=== PATIENT | female | born 1935 | race Caucasian/White ===

== ENCOUNTER 2022-06-19 11:33 | Inpatient (IN) ==
[2022-06-19] MEDS ORDERED: FUROSEMIDE 100 MG/10 ML VIAL IV ONE (13:04)
--- NOTE | 2022-06-19 13:07 | Emergency Department Note ---
HPI General Chief complaint: Shortness of Breath/Dyspnea Stated complaint: swollen legs Time Seen by Provider: 06/19/22 11:50 Source: patient Mode of arrival: wheelchair History of Present Illness HPI Narrative: Narrative: Patient is an 87-year-old female with a past medical history significant for atrial fibrillation and heart failure presents to the emergency department due to increasing swelling to her lower extremities and shortness of breath. Patient states that over the last week she has become increasingly short of breath. She endorses feeling more short of breath when laying flat on her bed. She also endorses waking up and feeling short of breath. She states that she becomes more significantly short of breath when walking or otherwise active. Patient's daughter states that she becomes short of breath while talking. Patient's daughter is a nurse, and states that she is concerned that she has worsening heart failure as a cause of her shortness of breath. Patient does endorse some palpitations intermittently as well. The patient's daughter states that she is concerned because her legs have swollen so much that she has begun to have weeping from her legs. She denies any other concerns at this time. Related Data Home Medications Medication Instructions Recorded Confirmed Actos 1 tab PO QPM 06/19/22 06/19/22 Daily Multi-Vitamin 1 tab PO QAM 06/19/22 06/19/22 Eliquis 1 tab PO Q12 06/19/22 06/19/22 Ocuvite Lutein 1 tab PO QAM 06/19/22 06/19/22 Tylenol 1 tab PO Q4-6HP PRN Pain 06/19/22 06/19/22 Zegerid 1 cap PO QHS PRN Heartburn 06/19/22 06/19/22 atorvastatin 1 tab PO QPM 06/19/22 06/19/22 bisoprolol fumarate 1 tab PO BID 06/19/22 06/19/22 duloxetine 1 cap PO Q12 06/19/22 06/19/22 escitalopram oxalate 1 tab PO QAM 06/19/22 06/19/22 furosemide 1 tab PO QAM 06/19/22 06/19/22 gabapentin 1 cap PO QPM 06/19/22 06/19/22 hydrocodone-acetaminophen 5 tab PO Q4-6HP PRN Pain 06/19/22 06/19/22 losartan 2 tab PO QAM 06/19/22 06/19/22 spironolactone 0.5 tab PO QPM 06/19/22 06/19/22 Allergies Allergy/AdvReac Type Severity Reaction Status Date / Time atenolol Allergy Verified 06/19/22 19:58 ibuprofen [From Motrin] Allergy Verified 06/19/22 19:58 niacin Allergy Verified 06/19/22 19:58 Protriptyline Allergy Verified 06/19/22 19:58 quinapril [From Accupril] Allergy Verified 06/19/22 19:58 rofecoxib [From Vioxx] Allergy Verified 06/19/22 19:58 Review of Systems ROS ROS Narrative: Narrative: Constitutional: Denies fever or weakness Eyes: Denies eye pain or vision change ENT ED: Denies throat pain, hearing loss or rhinorrhea Cardiovascular: Reports dyspnea on exertion, orthopnea, edema and paroxysmal nocturnal dyspnea; Denies chest pain Respiratory: Reports shortness of breath; Denies cough Gastrointestinal: Denies abdominal pain, nausea, vomiting, diarrhea or constipation Musculoskeletal: Denies back pain or myalgia Integumentary: Denies rash or lesions Neurological: Denies headache, weakness, numbness, confusion, abnormal gait or dizziness Psychiatric: Denies anxiety, suicidal thoughts or homicidal thoughts Endocrine: Denies fatigue or polyuria Hematological/Lymphatic: Denies easy bleeding or easy bruising PFSH Narrative Patient History Narrative: Narrative: Medical/Surgical/Family History All Active Problems (Updated 06/19/22 @ 16:51 by Racheal Holbrook MD) UTI (urinary tract infection) (Acute) Failure to thrive (Acute) Generalized weakness (Acute) Pedal edema (Acute) Acute exacerbation of congestive heart failure (Acute) Exam Narrative Narrative: Narrative: General General appearance: Present alert and in no apparent distress; Absent anxious or appears intoxicated Head Head: Present atraumatic and normocephalic Eye Eye: Present PERRL, EOMI and visual schulz intact; Absent scleral icterus or nystagmus ENT ENT: Present mucous membranes moist; Absent nasal congestion Neck Neck: Present full ROM; Absent tenderness Chest Chest: Present normal inspection and symmetric chest wall rise; Absent tenderness Respiratory Respiratory: Present normal lung sounds bilaterally; Absent respiratory distress, wheezes or accessory muscle use Cardiovascular Cardiovascular: Present regular rate, normal rhythm and normal heart sounds Adbominal Abdominal: Present soft and normal bowel sounds; Absent distention or tenderness Extremities Extremities: Present normal inspection, full ROM and other (Bilateral lower extremity edema); Absent tenderness Back Back: Present normal inspection and full ROM; Absent tenderness Neurological Neurological: Present alert and oriented X3 Psychiatric Psychiatric: Present normal affect and normal mood Skin Skin: Present warm (WNL), dry and normal color Course Vital Signs Vital signs: Vital Signs Temperature 97.3 F 06/19/22 11:35 Pulse Rate 73 06/19/22 11:35 Respiratory Rate 22 06/19/22 11:35 Blood Pressure 168/70 06/19/22 11:35 Pulse Oximetry (%) 95 06/19/22 11:35 Oxygen Delivery Method 06/19/22 11:35 Temperature 98.5 F 06/19/22 17:19 Pulse Rate 73 06/19/22 15:18 Respiratory Rate 12 06/19/22 17:19 Blood Pressure 163/72 06/19/22 17:19 Pulse Oximetry (%) 93 06/19/22 17:19 Oxygen Delivery Method 06/19/22 17:19 [facility] MDM Narrative Medical decision making narrative: Narrative: Patient is an 87 yo F who presented to the emergency department due to bilateral lower extremity edema and shortness of breath. Patient's symptoms are likely due to CHF exacerbation due to edema, SOB, orthopnea, PND, decrease in urination despite lasix use. Patients BNP is approximately 2000. Chest XR does not show significant pulmonary edema, but there are small pleural effusions. Patient is also found to have urinary tract infection. She has received a dose of ceftriaxone. I have spoken to Dr. Holbrook who has agreed to evaluate the patient for admission. Lab Data Result diagrams: 06/19/22 12:16 06/19/22 13:26 Labs: Lab Results 06/19/22 06/19/22 06/19/22 Range/Units 12:16 12:16 13:25 WBC 4.3 L (4.5-11.0) K/mcL RBC 3.96 (3.59-5.38) M/mcL Hgb 12.2 (11.2-15.7) g/dL Hct 38.7 (34.1-44.9) % POC Hct (36-48) MCV 97.7 (80.0-100.0) fL MCH 30.8 (26.0-34.0) pg MCHC 31.5 (31.0-36.0) g/dL RDW 14.0 (11.5-14.5) % Plt Count 183 (140-440) K/mcL MPV 10.3 (7.4-10.4) fL Immature Gran % (Auto) 0.2 (0.0-0.5) % Neut % (Auto) 52.7 (38.0-78.0) % Lymph % (Auto) 33.9 (15.5-49.0) % [place] % (Auto) 11.1 (1.0-12.0) % Eos % (Auto) 1.4 (0.0-7.0) % Baso % (Auto) 0.7 (0.0-2.0) % Lymph # (Auto) 1.46 L (1.50-4.80) K/mcL [place] # (Auto) 0.48 (0.10-0.90) K/mcL Eos # (Auto) 0.06 (0.00-0.70) K/mcL Baso # (Auto) 0.03 (0.00-0.30) K/mcL Immature Gran # 0.01 (0.00-0.05) K/mcl Absolute Neutrophils 2.27 (1.80-8.00) K/mcL POC Sodium (133-145) Sodium (133-145) mmol/L POC Potassium (3.3-5.1) Potassium (3.3-5.1) mmol/L POC Chloride (96-108) Chloride (96-108) mmol/L Carbon Dioxide (22-30) mmol/L POC Total CO2 (22-30) Anion Gap (8.0-16.0) POC BUN (6-20) BUN (8-23) mg/dL Creatinine (0.6-1.1) mg/dL POC Creatinine (0.6-1.2) GFR Calculation Glucose (70-105) mg/dL POC Glucose (70-105) Calcium (8.6-10.4) mg/dL POC WB Ioniz Calcium (1.16-1.32) Total Bilirubin (0.1-1.0) mg/dL AST (<32) U/L ALT (<40) U/L Alkaline Phosphatase (39-117) U/L NT-Pro-B Natriuret Pep 1996.0 H (<450.0) pg/mL Total Protein (5.9-8.4) gm/dL Albumin (3.2-5.2) gm/dL Globulin (2.2-3.7) gm/dL Albumin/Globulin Ratio (1.0-2.3) Urine Color Urine Appearance (Clear) Urine pH (5.0-9.0) Ur Specific [place] (1.000-1.035) Urine Protein (Negative) mg/dL Urine Glucose (UA) (Negative) mg/dL Urine Ketones (Negative) mg/dL Urine Occult Blood (Negative) sharan/mcL Urine Nitrate (Negative) Urine Bilirubin (Negative) mg/dL Urine Urobilinogen mg/dL Ur Leukocyte Esterase (Negative) /uL Urine RBC (0-3) /hpf Urine WBC (0-4) /hpf Ur Squamous Epith Cells (0-4) /hpf Ur Transition Epith Cell (0-2) /hpf Urine Bacteria (0) /hpf Hyaline Casts (0-2) /lph Urine Mucus (None) /hpf Ur Culture Indicated? POC Troponin I 0.01 L (0.02-0.08) 06/19/22 06/19/22 06/19/22 Range/Units 13:26 13:27 14:03 WBC (4.5-11.0) K/mcL RBC (3.59-5.38) M/mcL Hgb (11.2-15.7) g/dL Hct (34.1-44.9) % POC Hct 29.0 L (36-48) MCV (80.0-100.0) fL MCH (26.0-34.0) pg MCHC (31.0-36.0) g/dL RDW (11.5-14.5) % Plt Count (140-440) K/mcL MPV (7.4-10.4) fL Immature Gran % (Auto) (0.0-0.5) % Neut % (Auto) (38.0-78.0) % Lymph % (Auto) (15.5-49.0) % [place] % (Auto) (1.0-12.0) % Eos % (Auto) (0.0-7.0) % Baso % (Auto) (0.0-2.0) % Lymph # (Auto) (1.50-4.80) K/mcL [place] # (Auto) (0.10-0.90) K/mcL Eos # (Auto) (0.00-0.70) K/mcL Baso # (Auto) (0.00-0.30) K/mcL Immature Gran # (0.00-0.05) K/mcl Absolute Neutrophils (1.80-8.00) K/mcL POC Sodium 143 (133-145) Sodium 140 (133-145) mmol/L POC Potassium 4.2 (3.3-5.1) Potassium 4.1 (3.3-5.1) mmol/L POC Chloride 107 (96-108) Chloride 105 (96-108) mmol/L Carbon Dioxide 24 (22-30) mmol/L POC Total CO2 27.0 (22-30) Anion Gap 11.0 (8.0-16.0) POC BUN 32 H (6-20) BUN 26 H (8-23) mg/dL Creatinine 1.1 (0.6-1.1) mg/dL POC Creatinine 1.1 (0.6-1.2) GFR Calculation 45 Glucose 131 H (70-105) mg/dL POC Glucose 153 H (70-105) Calcium 9.6 (8.6-10.4) mg/dL POC WB Ioniz Calcium 1.29 (1.16-1.32) Total Bilirubin 0.5 (0.1-1.0) mg/dL AST 14 (<32) U/L ALT 9 (<40) U/L Alkaline Phosphatase 69 (39-117) U/L NT-Pro-B Natriuret Pep (<450.0) pg/mL Total Protein 7.0 (5.9-8.4) gm/dL Albumin 3.5 (3.2-5.2) gm/dL Globulin 3.5 (2.2-3.7) gm/dL Albumin/Globulin Ratio 1.0 (1.0-2.3) Urine Color Yellow Urine Appearance Slightly cloudy A (Clear) Urine pH 5.0 (5.0-9.0) Ur Specific [place] 1.015 (1.000-1.035) Urine Protein Negative (Negative) mg/dL Urine Glucose (UA) Negative (Negative) mg/dL Urine Ketones Negative (Negative) mg/dL Urine Occult Blood Trace-intact A (Negative) sharan/mcL Urine Nitrate Positive A (Negative) Urine Bilirubin Negative (Negative) mg/dL Urine Urobilinogen Normal mg/dL Ur Leukocyte Esterase Moderate A (Negative) /uL Urine RBC 3 (0-3) /hpf Urine WBC 135 H (0-4) /hpf Ur Squamous Epith Cells 2 (0-4) /hpf Ur Transition Epith Cell < 1 (0-2) /hpf Urine Bacteria Many A (0) /hpf Hyaline Casts 4 H (0-2) /lph Urine Mucus Few A (None) /hpf Ur Culture Indicated? yes POC Troponin I (0.02-0.08) EKG Data EKG #1: EKG attestation: Yes I reviewed and interpreted this EKG. EKG results narrative: Normal sinus rhythm with a rate of 72, equivocal axis, TX 362, QRS of 101, QTc of 472, T wave flattening in leads III and aVF, and absence of ST elevation or depression. Discharge Plan Patient/Caregiver Discharge Instructions Pt seen by HISTOLOGIST/PA only: No Patient Disposition: Xfer As Inpt ([facility]) Discharge Date/Time: 06/19/22 17:00 Discharge Comment: 129 at 1650
[2022-06-19 13:32] LABS: POC Calcium, Ionized 1.29 (1.16-1.32); POC Creatinine 1.1 (0.6-1.2); POC Potassium 4.2 (3.3-5.1)
[2022-06-19 13:49] LABS: Basophils # (Auto) 0.03 K/mcL (0.00-0.30); Basophils % (Auto) 0.7 % (0.0-2.0); Eosinophils # (Auto) 0.06 K/mcL (0.00-0.70); Eosinophils % (Auto) 1.4 % (0.0-7.0); Hematocrit 38.7 % (34.1-44.9); Hemoglobin 12.2 g/dL (11.2-15.7); Lymphocytes # (Auto) 1.46 K/mcL (1.50-4.80); Lymphocytes % (Auto) 33.9 % (15.5-49.0); Mean Cell Volume 97.7 fL (80.0-100.0); Mean Corpuscular HGB Conc 31.5 g/dL (31.0-36.0); Mean Platelet Volume 10.3 fL (7.4-10.4); Monocytes # (Auto) 0.48 K/mcL (0.10-0.90); Monocytes % (Auto) 11.1 % (1.0-12.0); Neutrophils % (Auto) 52.7 % (38.0-78.0); Platelet Count 183 K/mcL (140-440); RBC 3.96 M/mcL (3.59-5.38); WBC 4.3 K/mcL (4.5-11.0)
[2022-06-19 14:11] LABS: ALT/SGPT 9 U/L (<40); AST/SGOT 14 U/L (<32); Albumin 3.5 gm/dL (3.2-5.2); Alkaline Phosphatase 69 U/L (39-117); Bilirubin,Total 0.5 mg/dL (0.1-1.0); Blood Urea Nitrogen 26 mg/dL (8-23); Calcium 9.6 mg/dL (8.6-10.4); Carbon Dioxide 24 mmol/L (22-30); Chloride 105 mmol/L (96-108); Globulin 3.5 gm/dL (2.2-3.7); Glomerular Filtration Rate 45; Glucose 131 mg/dL (70-105)
--- NOTE | 2022-06-19 14:32 | XRay Report ---
CLINICAL INFORMATION: Shortness of breath COMPARISON: None. TECHNIQUE: Portable FINDINGS: The heart is mildly enlarged. Mediastinum and pulmonary vessels are unremarkable. There is moderate bibasilar atelectasis. No effusions. IMPRESSION: Mild cardiomegaly, but no CHF or other acute process. Interpreted and Authenticated by: Wilman Jasso 06/19/22
[2022-06-19 14:44] LABS: Appearance,Urine Slightly Cloudy (Clear); Bacteria,Urine MANY /hpf (0); Bilirubin,Urine Negative (Negative); Color,Urine Yellow; Culture Indicated,Urine yes; Glucose,Urine (UA) Negative (Negative); Ketones,Urine Negative (Negative); Leukocyte Esterase,Urine Moderate /uL (Negative); Mucus,Urine FEW /hpf; Nitrate,Urine Positive (Negative); Protein,Urine Negative (Negative); Specific Gravity,Urine 1.015 (1.000-1.035); Urine Blood Trace-intact ery/mcL (Negative); Urine Hyaline Cast 4 /lph (0-2); Urine RBC 3 /hpf (0-3); Urine Squamous Epithelial Cell 2 /hpf (0-4); Urine Transitional Epi Cells < 1 /hpf (0-2); Urine WBC 135 /hpf (0-4); Urobilinogen,Urine Normal
[2022-06-19] MEDS ORDERED: cefTRIAXone 1 GM VIAL IV ONE (15:07)
--- NOTE | 2022-06-19 16:52 | Internal Med History&Physical ---
HPI History of Present Illness Patient information: Note initiated : 06/19/22 at 4:48 pm Service Date, if different from initiated Date: [] Patient: Aggie Young a 87 y/o F admitted on for swollen legs. Chief Complaint: [Pedal edema, weakness] Chief complaint: Pedal edema, weakness History of present illness: Ms. Young is a 87 year old F with a past medical history significant for hypertension who presents to the hospital with worsening bilateral pedal edema. The patient's daughter was present at the bedside to corroborate her history. The patient reports that her legs have become so heavy that she has trouble with mobility. This is left her incapacitated. There is been also concerning for weeping and possibly the development of wounds in her lower extremities due to the pressure from the edema. They decided to come to the ER for further management and evaluation. On arrival, she was hemodynamically stable and afebrile. On arrival, her labs were unrevealing although her urinalysis was grossly abnormal. She was given one-time dose of ceftriaxone for suspected UTI as well. The hospitalist service was asked admit the patient for further management evaluation of suspected congestive heart failure exacerbation. Review of Systems All systems: reviewed and no additional remarkable complaints except as stated Constitutional Constitutional: Present as per HPI EENT Eyes: Present as per HPI; Absent blurry vision Cardiovascular Cardiovascular: Present as per HPI; Absent chest pain, dyspnea, dyspnea on exertion, leg edema or palpatations Respiratory Respiratory: Present as per HPI; Absent cough, dyspnea, dyspnea on exertion, wheezing or stridor Gastrointestinal Gastrointestinal: Present as per HPI; Absent abdominal pain, diarrhea, dysphagia, hematemesis, melena, nausea or vomiting Musculoskeletal Musculoskeletal: Present as per HPI; Absent joint swelling, limited range of motion, muscle cramps, muscle weakness or myalgias Integumentary Integumentary: Present as per HPI; Absent erythema, new lesions, rash or wounds Neurological Neurological: Present as per HPI; Absent abnormal gait, behavioral changes, focal weakness, headache(s), loss of vision, numbness, sensory deficit or syncope Endocrine Endocrine: Absent change in body appearance, fatigue or heat intolerance Hematologic/Lymphatic Hematologic/Lymphatic: Present as per HPI PFSH PFSH All Active Problems (Updated 06/19/22 @ 16:51 by Racheal Holbrook MD) UTI (urinary tract infection) (Acute) Failure to thrive (Acute) Generalized weakness (Acute) Pedal edema (Acute) Acute exacerbation of congestive heart failure (Acute) MEDS/ALLERGIES Home Medications and Allergies Allergies Allergy/AdvReac Type Severity Reaction Status Date / Time atenolol Allergy Verified 06/19/22 11:41 ibuprofen [From Motrin] Allergy Verified 06/19/22 11:41 niacin Allergy Verified 06/19/22 11:41 Protriptyline Allergy Verified 06/19/22 11:41 quinapril [From Accupril] Allergy Verified 06/19/22 11:41 rofecoxib [From Vioxx] Allergy Verified 06/19/22 11:41 EXAM Constitutional Vitals: Temp Pulse Resp BP Pulse Ox O2 Del Method 97.3 F 73 22 134/64 100 06/19/22 11:35 06/19/22 15:18 06/19/22 15:18 06/19/22 15:01 06/19/22 15:18 06/19/22 11:35 General appearance: average body habitus Head Head exam: Present atraumatic, normal inspection and normocephalic Eye Eye exam: Present EOMI, normal appearance and PERRL; Absent conjunctival injection ENT ENT exam: Present normal exam; Absent mucous membranes dry Neck Neck exam: Present full ROM; Absent lymphadenopathy Respiratory Respiratory exam: Present normal respiratory exam and CTAB; Absent decreased breath sounds, respiratory distress or wheezes Cardiovascular Cardiovascular exam: Present normal rate and rhythm and RRR; Absent JVD GI/Abdominal GI/Abdominal exam: Present normal bowel sounds and soft; Absent diminished bowel sounds, distended, guarding, mass, rebound or tenderness Neurological Exam Neurological exam: Present alert, CN II-XII intact and oriented X3 Psychiatric Psychiatric exam: Present normal affect and normal mood Skin Skin exam: Present intact and warm; Absent erythema, pallor, petechiae or rash DATA Data Completed and Pending Labs: Labs from last 24 hours 06/19/22 06/19/22 06/19/22 14:03 13:27 13:26 WBC RBC Hgb Hct POC Hct 29.0 L MCV MCH MCHC RDW Plt Count MPV Immature Gran % (Auto) Neut % (Auto) Lymph % (Auto) [place] % (Auto) Eos % (Auto) Baso % (Auto) Lymph # (Auto) [place] # (Auto) Eos # (Auto) Baso # (Auto) Immature Gran # Absolute Neutrophils POC Sodium 143 Sodium 140 POC Potassium 4.2 Potassium 4.1 POC Chloride 107 Chloride 105 Carbon Dioxide 24 POC Total CO2 27.0 Anion Gap 11.0 POC BUN 32 H BUN 26 H Creatinine 1.1 POC Creatinine 1.1 GFR Calculation 45 Glucose 131 H POC Glucose 153 H Calcium 9.6 POC WB Ioniz Calcium 1.29 Total Bilirubin 0.5 AST 14 ALT 9 Alkaline Phosphatase 69 NT-Pro-B Natriuret Pep Total Protein 7.0 Albumin 3.5 Globulin 3.5 Albumin/Globulin Ratio 1.0 Urine Color Yellow Urine Appearance Slightly cloudy A Urine pH 5.0 Ur Specific [place] 1.015 Urine Protein Negative Urine Glucose (UA) Negative Urine Ketones Negative Urine Occult Blood Trace-intact A Urine Nitrate Positive A Urine Bilirubin Negative Urine Urobilinogen Normal Ur Leukocyte Esterase Moderate A Urine RBC 3 Urine WBC 135 H Ur Squamous Epith Cells 2 Ur Transition Epith Cell < 1 Urine Bacteria Many A Hyaline Casts 4 H Urine Mucus Few A Ur Culture Indicated? yes POC Troponin I 06/19/22 06/19/22 06/19/22 13:25 12:16 12:16 WBC 4.3 L RBC 3.96 Hgb 12.2 Hct 38.7 POC Hct MCV 97.7 MCH 30.8 MCHC 31.5 RDW 14.0 Plt Count 183 MPV 10.3 Immature Gran % (Auto) 0.2 Neut % (Auto) 52.7 Lymph % (Auto) 33.9 [place] % (Auto) 11.1 Eos % (Auto) 1.4 Baso % (Auto) 0.7 Lymph # (Auto) 1.46 L [place] # (Auto) 0.48 Eos # (Auto) 0.06 Baso # (Auto) 0.03 Immature Gran # 0.01 Absolute Neutrophils 2.27 POC Sodium Sodium POC Potassium Potassium POC Chloride Chloride Carbon Dioxide POC Total CO2 Anion Gap POC BUN BUN Creatinine POC Creatinine GFR Calculation Glucose POC Glucose Calcium POC WB Ioniz Calcium Total Bilirubin AST ALT Alkaline Phosphatase NT-Pro-B Natriuret Pep 1997.0 H Total Protein Albumin Globulin Albumin/Globulin Ratio Urine Color Urine Appearance Urine pH Ur Specific [place] Urine Protein Urine Glucose (UA) Urine Ketones Urine Occult Blood Urine Nitrate Urine Bilirubin Urine Urobilinogen Ur Leukocyte Esterase Urine RBC Urine WBC Ur Squamous Epith Cells Ur Transition Epith Cell Urine Bacteria Hyaline Casts Urine Mucus Ur Culture Indicated? POC Troponin I 0.01 L A/P Assessment and plan (1) Acute exacerbation of congestive heart failure: Status: Acute (2) Pedal edema: Status: Acute (3) Generalized weakness: Status: Acute (4) Failure to thrive: Status: Acute (5) UTI (urinary tract infection): Status: Acute Narrative A/P Narrative: The patient has developed severe pedal edema that has left her incapacitated. Her legs are extremely heavy preventing her to walk and even get her legs into bed. We will obtain an echocardiogram to further assess her LVEF. She will be started on Lasix 40 mg IV every 8 hours. Of note there is concerns for UTI as well. She will continue ceftriaxone until her urine culture returns. She will need to work with physical therapy and Occupational Therapy. Medication reconciliation is pending Time Spent With Patient Time: Total time spent is greater than 50% in coordination of care (as documented) at patient's floor/unit and/or counseling patient: Total time spent with greater than 50% in coordination of care (as documented) at patient's floor/unit and/or counseling patient:: Greater than 70 minutes
[2022-06-19] MEDS ORDERED: ONDANSETRON 4 MG/2 ML VIAL IV PRN (17:38)
[2022-06-19] MEDS: APIXABAN 5 MG TABLET PO SCH (22:56)
[2022-06-19] MEDS: FUROSEMIDE 40 MG/4 ML VIAL IV SCH (22:56)
[2022-06-19] MEDS: DOCUSATE SODIUM 100 MG CAPSULE PO SCH (22:58)
[2022-06-19] MEDS: SENNOSIDES 1 TABLET PO SCH (22:58)
[2022-06-19] MEDS: BISOPROLOL 5 MG TABLET PO SCH (22:58)
[2022-06-19] MEDS: 0.9 % SODIUM CHLORIDE 10 ML SYRINGE IV SCH (22:58)
[2022-06-20] MEDS: FUROSEMIDE 40 MG/4 ML VIAL IV SCH ×3 (05:17→21:19)
[2022-06-20] MEDS: 0.9 % SODIUM CHLORIDE 10 ML SYRINGE IV SCH ×3 (05:17→21:20)
[2022-06-20 06:31] LABS: Basophils # (Auto) 0.05 K/mcL (0.00-0.30); Basophils % (Auto) 0.8 % (0.0-2.0); Eosinophils # (Auto) 0.09 K/mcL (0.00-0.70); Eosinophils % (Auto) 1.4 % (0.0-7.0); Hematocrit 31.8 % (34.1-44.9); Hemoglobin 10.1 g/dL (11.2-15.7); Lymphocytes # (Auto) 1.82 K/mcL (1.50-4.80); Mean Cell Volume 97.5 fL (80.0-100.0); Mean Corpuscular HGB Conc 31.8 g/dL (31.0-36.0); Mean Platelet Volume 10.7 fL (7.4-10.4); Monocytes # (Auto) 0.74 K/mcL (0.10-0.90); Monocytes % (Auto) 11.4 % (1.0-12.0); Neutrophils % (Auto) 57.9 % (38.0-78.0); Platelet Count 218 K/mcL (140-440); RBC 3.26 M/mcL (3.59-5.38); Red Cell Distribution Width 13.8 % (11.5-14.5); WBC 6.5 K/mcL (4.5-11.0)
[2022-06-20 06:54] LABS: Blood Urea Nitrogen 28 mg/dL (8-23); Calcium 9.2 mg/dL (8.6-10.4); Carbon Dioxide 28 mmol/L (22-30); Chloride 104 mmol/L (96-108); Glomerular Filtration Rate 45; Glucose 113 mg/dL (70-105)
[2022-06-20] MEDS: DOCUSATE SODIUM 100 MG CAPSULE PO SCH ×2 (08:02→20:55)
[2022-06-20] MEDS: APIXABAN 5 MG TABLET PO SCH ×2 (08:02→20:55)
[2022-06-20] MEDS: ESCITALOPRAM 10 MG TABLET PO SCH (08:02)
[2022-06-20] MEDS: BISOPROLOL 5 MG TABLET PO SCH ×2 (08:02→20:54)
[2022-06-20] MEDS: cefTRIAXone 1 GM VIAL IV SCH (08:38)
[2022-06-20] MEDS ORDERED: ENOXAPARIN 40 MG/0.4 ML SYRINGE SQ SCH (09:00)
[2022-06-20] MEDS ORDERED: cefTRIAXone 1 GM VIAL IV SCH (11:00)
--- NOTE | 2022-06-20 11:08 | Internal Med Progress Note ---
SUBJECTIVE Subjective Patient information: Note initiated : 06/20/22 at 11:05 am Service Date, if different from initiated Date: [] Patient: Aggie Young 87 y/o F admitted on 06/19/22 for swollen legs. Chief Complaint: [Leg heaviness, weakness] Principal diagnosis: Generalized weakness Interval history: The patient is very sweet, kind and cooperative. She has no active complaints or concerns. She is thankful for the care that she is receiving. Constitutional Vitals: Vital Signs Temp Pulse Resp BP Pulse Ox O2 Del Method 98.1 F 58 L 18 145/63 96 06/20/22 08:06 06/20/22 08:06 06/20/22 08:06 06/20/22 08:06 06/20/22 08:06 06/20/22 08:06 Period Temp Pulse Resp BP Sys/Fang Pulse Ox O2 Del Method O2 Flow Rate Last 24 Hr 97.3 F-98.5 F 58-73 12-24 116-168/55-103 93-100 Room Air-Room Air Intake and Output 06/19/22 06/20/22 06/20/22 21:59 05:59 13:59 Intake Total 400 460 Output Total 1826 750 Balance -1826 -350 460 Weight 111.538 kg Intake & Output: Intake & Output 06/19/22 06/20/22 06/20/22 21:59 05:59 13:59 Intake Total 400 460 Output Total 1826 750 Balance -1826 -350 460 Weight 111.538 kg Intake: Oral 400 460 Output: Void Amount 1825 750 # of times incontinent of urine 1 Other: Meal Dinner Breakfast Percent of Meal Consumed 100% 100% Feeding Ability Independent Independent Urine Appearance Clear Clear Urine Color Bright Yellow Pale Urine Odor Normal # Bowel Movements 0 Head Head exam: Present atraumatic and normal inspection Eye Eye exam: Present normal appearance ENT ENT exam: Present mucous membranes moist, normal exam and normal external ear exam Neck Neck exam: Present normal inspection Respiratory Respiratory exam: Present normal respiratory exam Cardiovascular Cardiovascular exam: Present normal rate and rhythm GI/Abdominal GI/Abdominal exam: Present normal bowel sounds Back Exam Back exam: Present normal inspection Neurological Exam Neurological exam: Present alert and oriented X3 Skin Skin exam: Present intact and warm OBJ DATA Labs CBC & Chem 7: 06/20/22 05:17 06/20/22 05:17 Labs: Abnormal Lab Results 06/20/22 06/20/22 06/19/22 05:17 05:17 14:03 WBC RBC 3.26 L Hgb 10.1 L Hct 31.8 L POC Hct MPV 10.7 H Lymph # (Auto) POC BUN BUN 28 H Glucose 113 H POC Glucose NT-Pro-B Natriuret Pep Urine Appearance Slightly cloudy A Urine Occult Blood Trace-intact A Urine Nitrate Positive A Ur Leukocyte Esterase Moderate A Urine WBC 135 H Urine Bacteria Many A Hyaline Casts 4 H Urine Mucus Few A POC Troponin I 06/19/22 06/19/22 06/19/22 13:27 13:26 13:25 WBC RBC Hgb Hct POC Hct 29.0 L MPV Lymph # (Auto) POC BUN 32 H BUN 26 H Glucose 131 H POC Glucose 153 H NT-Pro-B Natriuret Pep Urine Appearance Urine Occult Blood Urine Nitrate Ur Leukocyte Esterase Urine WBC Urine Bacteria Hyaline Casts Urine Mucus POC Troponin I 0.01 L 06/19/22 06/19/22 12:16 12:16 WBC 4.3 L RBC Hgb Hct POC Hct MPV Lymph # (Auto) 1.46 L POC BUN BUN Glucose POC Glucose NT-Pro-B Natriuret Pep 1997.0 H Urine Appearance Urine Occult Blood Urine Nitrate Ur Leukocyte Esterase Urine WBC Urine Bacteria Hyaline Casts Urine Mucus POC Troponin I Meds: Medications Acetaminophen (Acetaminophen 325 Mg Tablet) 650 mg PO Q6HP PRN; Protocol PRN Reason: Per Pain Protocol/Fever > 101 Apixaban (Apixaban 5 Mg Tablet) 2.5 mg PO BID [facility] Last Admin: 06/20/22 08:02 Dose: 2.5 mg Atorvastatin Calcium (Atorvastatin 10 Mg Tablet) 10 mg PO [facility] Bisoprolol Fumarate (Bisoprolol 5 Mg Tablet) 20 mg PO BID [facility] Last Admin: 06/20/22 08:02 Dose: 20 mg Ceftriaxone Sodium (Ceftriaxone 1 Gm Vial) 1 gm IV Q24H [facility]; Protocol Last Admin: 06/20/22 08:38 Dose: 1 gm Docusate Sodium (Docusate Sodium 100 Mg Capsule) 100 mg PO BID [facility] Last Admin: 06/20/22 08:02 Dose: 100 mg Escitalopram Oxalate (Escitalopram 10 Mg Tablet) 10 mg PO DAILY [facility] Last Admin: 06/20/22 08:02 Dose: 10 mg Furosemide (Furosemide 40 Mg/4 Ml Vial) 40 mg IV Q8 [facility] Last Admin: 06/20/22 05:17 Dose: 40 mg Ondansetron HCl (Ondansetron 4 Mg/2 Ml Vial) 4 mg IV Q6HP PRN PRN Reason: Nausea And Vomiting Senna (Sennosides 1 Tablet) 2 tab PO HS [facility] Last Admin: 06/19/22 22:58 Dose: Not Given Sodium Chloride (0.9 % Sodium Chloride 10 Ml Syringe) 10 ml IV Q8 [facility] Last Admin: 06/20/22 05:17 Dose: 10 ml A/P Assessment and plan (1) Acute exacerbation of congestive heart failure: Status: Acute (2) Pedal edema: Status: Acute (3) Generalized weakness: Status: Acute (4) Failure to thrive: Status: Acute (5) UTI (urinary tract infection): Status: Acute Narrative A/P Narrative: The patient has developed severe pedal edema that has left her incapacitated. Her legs are extremely heavy preventing her to walk and even get her legs into bed. We will obtain an echocardiogram to further assess her LVEF. She will be started on Lasix 40 mg IV every 8 hours. Of note there is concerns for UTI as well. She will continue ceftriaxone until her urine culture returns. She will need to work with physical therapy and Occupational Therapy. Medication reconciliation is pending Time Spent With Patient Time: Total time spent is greater than 50% in coordination of care (as documented) at patient's floor/unit and/or counseling patient: Total time spent with greater than 50% in coordination of care (as documented) at patient's floor/unit and/or counseling patient:: 25 - 35 minutes
[2022-06-20] MEDS ORDERED: SENNOSIDES/DOCUSATE SODIUM 1 TAB TABLET PO PRN (16:54)
[2022-06-20] MEDS: ATORVASTATIN 10 MG TABLET PO SCH (20:55)
[2022-06-20] MEDS: ACETAMINOPHEN 325 MG TABLET PO PRN (20:56)
[2022-06-20] MEDS: SENNOSIDES 1 TABLET PO SCH (20:59)
[2022-06-21] MEDS: ACETAMINOPHEN 325 MG TABLET PO PRN ×2 (05:40→20:58)
[2022-06-21] MEDS: FUROSEMIDE 40 MG/4 ML VIAL IV SCH ×3 (05:47→20:56)
[2022-06-21] MEDS: 0.9 % SODIUM CHLORIDE 10 ML SYRINGE IV SCH ×3 (05:47→21:01)
--- NOTE | 2022-06-21 08:08 | EKG ---
[facility] Test Date: 2022-06-19 Pat Name: Aggie Young Department: ED Room: Gender: Female Utility Bill Collection Clerk: : [id number] Requested By: Darion Chiu Order Number: [id number] Reading MD: Wilman Colón M.D. Measurements Intervals [place] Rate: 72 P: -1 [place]: 362 QRS: 15 QRSD: 101 T: 18 QT: 431 QTc: 472 Interpretive Statements Sinus rhythm FIRST DEGREE AV BLOCK; EK=425 msec Electronically Signed On 06-21-2022 8:07:29 PDT by Wilman Colón M.D. /[email or web address]/[id number]
[2022-06-21] MEDS: APIXABAN 5 MG TABLET PO SCH ×2 (08:35→20:56)
[2022-06-21] MEDS: ESCITALOPRAM 10 MG TABLET PO SCH (08:35)
[2022-06-21] MEDS: BISOPROLOL 5 MG TABLET PO SCH ×2 (08:36→20:56)
[2022-06-21] MEDS: DOCUSATE SODIUM 100 MG CAPSULE PO SCH ×2 (08:38→20:15)
[2022-06-21] MEDS: cefTRIAXone 1 GM VIAL IV SCH (08:48)
[2022-06-21 10:02] LABS: Blood Urea Nitrogen 32 mg/dL (8-23); Calcium 9.2 mg/dL (8.6-10.4); Carbon Dioxide 30 mmol/L (22-30); Chloride 102 mmol/L (96-108); Glomerular Filtration Rate 40; Glucose 166 mg/dL (70-105)
--- NOTE | 2022-06-21 12:03 | Internal Med Progress Note ---
SUBJECTIVE Subjective Patient information: Note initiated : 06/21/22 at 12:00 pm Service Date, if different from initiated Date: [] Patient: Aggie Young 87 y/o F admitted on 06/19/22 for swollen legs. Chief Complaint: [Worsening pedal edema] Principal diagnosis: Generalized weakness Interval history: The patient was resting comfortably in bed. She had no active complaints or concerns. She has done well overall. Constitutional Vitals: Vital Signs Temp Pulse Resp BP Pulse Ox O2 Del Method 98.3 F 62 20 141/61 97 06/21/22 08:00 06/21/22 08:00 06/21/22 08:00 06/21/22 08:00 06/21/22 08:00 06/21/22 08:00 Period Temp Pulse Resp BP Sys/Fang Pulse Ox O2 Del Method O2 Flow Rate Last 24 Hr 98.3 F-99.4 F 62-68 16-20 117-141/51-67 91-97 Room Air-Room Air Intake and Output 06/20/22 06/21/22 06/21/22 21:59 05:59 13:59 Intake Total 520 120 240 Output Total 101 152 750 Balance 419 -32 510 Weight 107.728 kg Intake & Output: Intake & Output 06/20/22 06/21/22 06/21/22 21:59 05:59 13:59 Intake Total 520 120 240 Output Total 101 152 750 Balance 419 -32 -510 Weight 107.728 kg Intake: Oral 120 120 240 GI Tube Flush 400 Output: Void Amount 100 150 750 # of times incontinent of urine 1 2 Other: Meal Dinner Breakfast Percent of Meal Consumed 100% 100% Feeding Ability Independent Independent Urine Appearance Clear Clear Clear Urine Color Bright Yellow Bright Yellow Yellow Urine Odor Normal Normal Normal Stool Size Large Stool Color Brown Stool Consistency Soft # Voids 1 1 # Bowel Movements 1 Head Head exam: Present atraumatic and normal inspection Eye Eye exam: Present normal appearance ENT ENT exam: Present mucous membranes moist, normal exam and normal external ear exam Neck Neck exam: Present normal inspection Respiratory Respiratory exam: Present normal respiratory exam Cardiovascular Cardiovascular exam: Present normal rate and rhythm GI/Abdominal GI/Abdominal exam: Present normal bowel sounds Back Exam Back exam: Present normal inspection Neurological Exam Neurological exam: Present alert and oriented X3 Skin Skin exam: Present intact and warm OBJ DATA Labs CBC & Chem 7: 06/20/22 05:17 06/21/22 09:02 Labs: Abnormal Lab Results 06/21/22 06/20/22 06/20/22 09:02 05:17 05:17 WBC RBC 3.26 L Hgb 10.1 L Hct 31.8 L POC Hct MPV 10.7 H Lymph # (Auto) POC BUN BUN 32 H 28 H Creatinine 1.2 H Glucose 166 H 113 H POC Glucose NT-Pro-B Natriuret Pep Urine Appearance Urine Occult Blood Urine Nitrate Ur Leukocyte Esterase Urine WBC Urine Bacteria Hyaline Casts Urine Mucus POC Troponin I 06/19/22 06/19/22 06/19/22 14:03 13:27 13:26 WBC RBC Hgb Hct POC Hct 29.0 L MPV Lymph # (Auto) POC BUN 32 H BUN 26 H Creatinine Glucose 131 H POC Glucose 153 H NT-Pro-B Natriuret Pep Urine Appearance Slightly cloudy A Urine Occult Blood Trace-intact A Urine Nitrate Positive A Ur Leukocyte Esterase Moderate A Urine WBC 135 H Urine Bacteria Many A Hyaline Casts 4 H Urine Mucus Few A POC Troponin I 06/19/22 06/19/22 06/19/22 13:25 12:16 12:16 WBC 4.3 L RBC Hgb Hct POC Hct MPV Lymph # (Auto) 1.46 L POC BUN BUN Creatinine Glucose POC Glucose NT-Pro-B Natriuret Pep 1997.0 H Urine Appearance Urine Occult Blood Urine Nitrate Ur Leukocyte Esterase Urine WBC Urine Bacteria Hyaline Casts Urine Mucus POC Troponin I 0.01 L Meds: Medications Acetaminophen (Acetaminophen 325 Mg Tablet) 650 mg PO Q6HP PRN; Protocol PRN Reason: Per Pain Protocol/Fever > 101 Last Admin: 06/21/22 05:40 Dose: 650 mg Apixaban (Apixaban 5 Mg Tablet) 2.5 mg PO BID [facility] Last Admin: 06/21/22 08:35 Dose: 2.5 mg Atorvastatin Calcium (Atorvastatin 10 Mg Tablet) 10 mg PO HS [facility] Last Admin: 06/20/22 20:55 Dose: 10 mg Bisoprolol Fumarate (Bisoprolol 5 Mg Tablet) 20 mg PO BID [facility] Last Admin: 06/21/22 08:36 Dose: 20 mg Ceftriaxone Sodium (Ceftriaxone 1 Gm Vial) 1 gm IV Q24H [facility]; Protocol Last Admin: 06/21/22 08:48 Dose: 1 gm Docusate Sodium (Docusate Sodium 100 Mg Capsule) 100 mg PO BID [facility] Last Admin: 06/21/22 08:38 Dose: Not Given Escitalopram Oxalate (Escitalopram 10 Mg Tablet) 10 mg PO DAILY [facility] Last Admin: 06/21/22 08:35 Dose: 10 mg Furosemide (Furosemide 40 Mg/4 Ml Vial) 40 mg IV Q8 [facility] Last Admin: 06/21/22 05:47 Dose: 40 mg Ondansetron HCl (Ondansetron 4 Mg/2 Ml Vial) 4 mg IV Q6HP PRN PRN Reason: Nausea And Vomiting Senna (Sennosides 1 Tablet) 2 tab PO HS [facility] Last Admin: 06/20/22 20:59 Dose: Not Given Senna/Docusate Sodium (Sennosides/Docusate Sodium 1 Tab Tablet) 1 tab PO BIDP PRN PRN Reason: Abdominal Distention Sodium Chloride (0.9 % Sodium Chloride 10 Ml Syringe) 10 ml IV Q8 [facility] Last Admin: 06/21/22 05:47 Dose: 10 ml A/P Assessment and plan (1) Acute exacerbation of congestive heart failure: Status: Acute (2) Pedal edema: Status: Acute (3) Generalized weakness: Status: Acute (4) Failure to thrive: Status: Acute (5) UTI (urinary tract infection): Status: Acute Narrative A/P Narrative: The patient has developed severe pedal edema that has left her incapacitated. Her legs are extremely heavy preventing her to walk and even get her legs into bed. We will obtain an echocardiogram to further assess her LVEF. She will be started on Lasix 40 mg IV every 8 hours. Of note there is concerns for UTI as well. She will continue ceftriaxone until her urine culture returns. She will need to work with physical therapy and Occupational Therapy. Medication reconciliation is pending 06/20: The patient's creatinine remained stable at 1.1. She is now -2.1 L. We will continue to aggressively diurese her with IV Lasix. Her urine culture is pending. We will continue ceftriaxone. 06/21: The patient's creatinine is holding steady with IV diuresis. Her pedal edema is improving. Today is day 3 of 3 of ceftriaxone and this will be discontinued. Her urine culture did come back positive for Klebsiella. She is currently awaiting placement to longterm facility. Of note, the patient's TTE report has come back and reveals that her LV systolic function is normal and her EF is 55 to 60%. There is moderate mitral stenosis and mild to moderate mitral regurgitation. She was also found to have mild pulmonary hypertension. Time Spent With Patient Time: Total time spent is greater than 50% in coordination of care (as documented) at patient's floor/unit and/or counseling patient: Total time spent with greater than 50% in coordination of care (as documented) at patient's floor/unit and/or counseling patient:: 25 - 35 minutes
[2022-06-21] MEDS: SENNOSIDES 1 TABLET PO SCH (20:15)
[2022-06-21] MEDS: ATORVASTATIN 10 MG TABLET PO SCH (20:56)
[2022-06-22] MEDS: 0.9 % SODIUM CHLORIDE 10 ML SYRINGE IV SCH (04:36)
[2022-06-22] MEDS: ACETAMINOPHEN 325 MG TABLET PO PRN (04:36)
[2022-06-22] MEDS: FUROSEMIDE 40 MG/4 ML VIAL IV SCH (05:21)
[2022-06-22 07:23] LABS: Blood Urea Nitrogen 31 mg/dL (8-23); Calcium 9.2 mg/dL (8.6-10.4); Carbon Dioxide 29 mmol/L (22-30); Chloride 101 mmol/L (96-108); Glomerular Filtration Rate 45; Glucose 121 mg/dL (70-105)
[2022-06-22] MEDS: APIXABAN 5 MG TABLET PO SCH (08:25)
[2022-06-22] MEDS: BISOPROLOL 5 MG TABLET PO SCH (08:25)
[2022-06-22] MEDS: ESCITALOPRAM 10 MG TABLET PO SCH (08:26)
[2022-06-22] MEDS: DOCUSATE SODIUM 100 MG CAPSULE PO SCH (08:28)
--- NOTE | 2022-06-22 10:56 | Discharge Summary ---
Discharge Provider Provider IMPORTANT FOLLOW-UP INFORMATION FOR PCP: 1. Repeat BMP within 1 week 2. Refer to cardiology 3. Readjust diuretic therapy as needed Patient information: Note initiated : 06/22/22 at 10:55 am Service Date, if different from initiated Date: [] Patient: Aggie Young 87 y/o F admitted on 06/19/22 for swollen legs. Chief Complaint: [] Date of admission: 06/19/22 17:00 Discharge date: 06/22/22 Primary care physician: Ilya Stock DO Consults: 06/19/22 Consult to Physician [CONS] Stat Comment: Consulting Provider: Racheal Holbrook Reason For Exam: Physician to Consult Attending physician on discharge: Racheal Holbrook COURSE Hospital Course Hospital course: Chief complaint: Pedal edema, weakness History of present illness: Ms. Young is a 87 year old F with a past medical history significant for hypertension who presents to the hospital with worsening bilateral pedal edema. The patient's daughter was present at the bedside to corroborate her history. The patient reports that her legs have become so heavy that she has trouble with mobility. This is left her incapacitated. There is been also concerning for weeping and possibly the development of wounds in her lower extremities due to the pressure from the edema. They decided to come to the ER for further management and evaluation. On arrival, she was hemodynamically stable and afebrile. On arrival, her labs were unrevealing although her urinalysis was grossly abnormal. She was given one-time dose of ceftriaxone for suspected UTI as well. The hospitalist service was asked admit the patient for further management evaluation of suspected congestive heart failure exacerbation. A/P Narrative: The patient has developed severe pedal edema that has left her incapacitated. Her legs are extremely heavy preventing her to walk and even get her legs into bed. We will obtain an echocardiogram to further assess her LVEF. She will be started on Lasix 40 mg IV every 8 hours. Of note there is concerns for UTI as well. She will continue ceftriaxone until her urine culture returns. She will need to work with physical therapy and Occupational Therapy. Medication reconciliation is pending 06/20: The patient's creatinine remained stable at 1.1. She is now -2.1 L. We will continue to aggressively diurese her with IV Lasix. Her urine culture is p ending. We will continue ceftriaxone. 06/21: The patient's creatinine is holding steady with IV diuresis. Her pedal edema is improving. Today is day 3 of 3 of ceftriaxone and this will be discontinued. Her urine culture did come back positive for Klebsiella. She is currently awaiting placement to half-way facility. Of note, the patient's TTE report has come back and reveals that her LV systolic function is normal and her EF is 55 to 60%. There is moderate mitral stenosis and mild to moderate mitral regurgitation. She was also found to have mild pulmonary hypertension. 06/22: The patient's home Lasix dose will be increased from 40 mg once daily to twice daily. She has been on Lasix 40 mg IV 3 times daily which she is tolerated very well and her creatinine has remained stable. With ongoing improvement of significant pedal edema, she should no longer require opioid analgesics. Continue to work with therapy to get stronger prior to returning home. Discharge diagnosis: Severe pedal edema 2/2 dCHF, Klebsiella UTI, generalized weakness Time Spent with Patient Time attestation: Total time spent providing and/or coordinating discharge services: Time spent: Greater than 30 minutes EXAM Constitutional Vitals: Temp Pulse Resp BP Pulse Ox O2 Del Method 98.7 F 63 20 139/59 92 06/22/22 08:00 06/22/22 08:00 06/22/22 08:00 06/22/22 08:00 06/22/22 08:00 06/22/22 08:00 General appearance: average body habitus Head Head exam: Present atraumatic, normal inspection and normocephalic Eye Eye exam: Present EOMI, normal appearance and PERRL; Absent conjunctival injection ENT ENT exam: Present normal exam; Absent mucous membranes dry Neck Neck exam: Present full ROM; Absent lymphadenopathy Respiratory Respiratory exam: Present normal respiratory exam and CTAB; Absent decreased breath sounds, respiratory distress or wheezes Cardiovascular Cardiovascular exam: Present normal rate and rhythm and RRR; Absent JVD GI/Abdominal GI/Abdominal exam: Present normal bowel sounds and soft; Absent diminished bowel sounds, distended, guarding, mass, rebound or tenderness Neurological Exam Neurological exam: Present alert, CN II-XII intact and oriented X3 Psychiatric Psychiatric exam: Present normal affect and normal mood Skin Skin exam: Present intact and warm; Absent erythema, pallor, petechiae or rash Discharge Data Data Completed and Pending Labs on day of discharge: Labs from last 24 hours 06/22/22 05:35 Sodium 143 Potassium 3.7 Chloride 101 Carbon Dioxide 29 Anion Gap 13.0 BUN 31 H Creatinine 1.1 GFR Calculation 45 Glucose 121 H Calcium 9.2 Discharge Plan Patient/Caregiver Discharge Instructions Activity: as per physical therapy Diet: Low Sodium (2gm) Instructions: Heart Failure (DC) Activity Restrictions/Additional Instructions: Resume home diet as tolerated. Take all meals up in chair, sitting at 90 degrees, to prevent aspiration. Increase activity as tolerated. Continue fall precautions. Return to ER for fever, chills, uncontrolled pain, inability to urinate or have a bowel movement, nausea and/or vomiting, swelling, redness, signs of infection, shortness of breath, chest pain, return of symptoms, or other acute symptom. This discharge packet is provided to you to help keep you informed about your care. We want to ensure you get everything you need when you go home. You will also be receiving a call from us in a few days to follow up with you and see how you are doing since your discharge. This gives us a chance to listen to any concerns you maybe experiencing since you were discharged or any additional needs you may have, as well as providing us feedback on your care experience. We strive to always provide excellent care and thank you for your feedback and for choosing [facility]. Prescriptions: New furosemide [Lasix] 40 mg tablet 40 mg PO BID 7 Days Qty: 14 0RF Continued Daily Multi-Vitamin 1 tab tablet 1 tab PO QAM Ocuvite Lutein 1 tab tablet 1 tab PO QAM bisoprolol fumarate 10 mg tablet 1 tab PO BID escitalopram oxalate 10 mg tablet 1 tab PO QAM losartan 50 mg tablet 2 tab PO QAM Actos 15 mg tablet 1 tab PO QPM Eliquis 2.5 mg tablet 1 tab PO Q12 Tylenol 325 mg tablet 1 tab PO Q4-6HP PRN (Reason: Pain) Zegerid 20 mg capsule 1 cap PO QHS PRN (Reason: Heartburn) atorvastatin 10 mg tablet 1 tab PO QPM duloxetine 30 mg capsule 1 cap PO Q12 gabapentin 300 mg capsule 1 cap PO QPM spironolactone 25 mg tablet 0.5 tab PO QPM Discontinued furosemide 40 mg tablet 1 tab PO QAM hydrocodone-acetaminophen 5 mg tablet 5 tab PO Q4-6HP PRN (Reason: Pain) Follow Up Plan Patient Disposition: Xfer SNF Rehab Potential: Good I certify that the patient requires SNF services: Yes Overall status at discharge: patient is progressing back to baseline Discharge Orders: Discharge Order (Routine); Ordered 06/22/22 Ordered By: Racheal Holbrook
[2022-06-22] MEDS: cefTRIAXone 1 GM VIAL IV SCH (11:33)
[2022-06-27 10:56] LABS: POC Calcium, Ionized 1.25 (1.16-1.32); POC Creatinine 1.2 (0.6-1.2); POC Potassium 4.2 (3.3-5.1)
== END 2022-06-22 13:30 | DRG 291 ==
LOC: ED 11:33 → MEDSUR 17:00
PROVIDERS: ADMIT Student in an Organized Health Care Education/Training Program; ATTEND Student in an Organized Health Care Education/Training Program